=== PATIENT | male | born 1935 | race Caucasian/White ===

== ENCOUNTER 2017-11-07 21:50 | Observation (INO) | payer MEDICARE, BC ==
[2017-11-07 22:41] LABS: CHLORIDE,CL 104 mEq/L (98-106); SODIUM,NA 139 mEq/L (136-145)
--- NOTE | 2017-11-07 22:41 | EDM.PDOC ---
ED HPI GENERAL MEDICAL PROBLEM - General Chief Complaint: General Stated Complaint: confused Time Seen by Provider: 11/07/17 22:22 Source of Information: Reports: Patient History Limitations: Reports: Altered Mental Status (patient vocalizes and answers questions but not always appropriate for question or situation) - History of Present Illness INITIAL COMMENTS - FREE TEXT/NARRATIVE: Patient presents per EMS with concerns of increased confusion from his norm, hypertensive urgency. states he awoke from a short nap after supper in his recliner and was way more confused than normal. Had trouble redirecting him. Helped him up to bad and when she turned her back to call family, he fell to the floor. Patient does have issues with dementia and she relates that his confusion in not a new thing, was just different. He has not had a fever. No real cough. No urinary changes. No N/V/D. states she called her daughter -in-law who is a nurse to come over and his blood pressure was very high. With his history of small strokes, she was concerned about the blood pressure and change in mental status. He has been eating and drinking without difficulty, although she did note his lips and mouth seemed to be more dry than usual. Onset: Today, Sudden Duration: Minutes: Location: Reports: Generalized Associated Symptoms: Reports: Confusion, Weakness. Denies: Chest Pain, Cough, Fever/Chills, Loss of Appetite, Nausea/Vomiting, Shortness of Breath, Syncope - Related Data Allergies Allergy/AdvReac Type Severity Reaction Status Date / Time prochlorperazine maleate Allergy Cannot Verified 03/18/16 13:52 [From Compazine] Remember prochlorperazine edisylate AdvReac Cannot Verified 03/18/16 13:52 [From Compazine] Remember Home Meds: Home Meds Levothyroxine Sodium [Levoxyl] 150 mcg PO DAILY 03/18/16 [History] Metoprolol Tartrate 50 mg PO BID 03/18/16 [History] amLODIPine [Norvasc] 5 mg PO DAILY 03/18/16 [History] Cholecalciferol (Vitamin D3) [Vitamin D3] 2,000 units PO DAILY 11/07/17 [History ] Magnesium 250 mg PO DAILY 11/07/17 [History] Warfarin [Coumadin] 5 mg PO SUMOWETHSA 11/07/17 [History] Warfarin [Coumadin] 7.5 mg PO TUFR 11/07/17 [History] Past Medical History Cardiovascular History: Reports: CAD, High Cholesterol, Hypertension Respiratory History: Reports: PE. Denies: Sleep Apnea Gastrointestinal History: Reports: Irritable Bowel Syndrome, Other (See Below) Other Gastrointestinal History: crohns disease Genitourinary History: Reports: BPH Musculoskeletal History: Reports: Arthritis Neurological History: Reports: CVA Psychiatric History: Reports: Dementia Oncologic (Cancer) History: Reports: Hodgkin's Lymphoma Social & Family History - Tobacco Use Smoking Status *Q: Never Smoker - Caffeine Use Caffeine Use: Reports: Coffee ED ROS GENERAL - Review of Systems Review Of Systems: See Below Constitutional: Reports: Weakness. Denies: Fever, Chills, Malaise, Decreased Appetite HEENT: Denies: Ear Pain, Sinus Problem, Throat Pain, Vertigo Respiratory: Denies: Shortness of Breath, Cough Cardiovascular: Denies: Chest Pain, Edema, Lightheadedness Endocrine: Reports: Fatigue GI/Abdominal: Denies: Abdominal Pain, Black Stool, Bloody Stool, Nausea, Vomiting : Denies: Flank Pain, Frequency Musculoskeletal: Reports: No Symptoms Skin: Reports: No Symptoms Neurological: Reports: Confusion, Weakness ED EXAM, GENERAL - Physical Exam Exam: See Below Exam Limited By: No Limitations General Appearance: Alert, WD/WN, No Apparent Distress Eye Exam: Bilateral Eye: EOMI Ears: Normal External Exam, Normal TMs Nose: Normal Inspection, Normal Mucosa, No Blood Throat/Mouth: Normal Inspection, Normal Oropharynx Head: Normocephalic Neck: Normal Inspection, Supple, Non-Tender Respiratory/Chest: No Respiratory Distress, Lungs Clear, Normal Breath Sounds Cardiovascular: Regular Rate, Rhythm, No Edema GI/Abdominal: Normal Bowel Sounds, Soft, Non-Tender Extremities: Normal Inspection, Normal Capillary Refill Neurological: Alert, Oriented (person. Knows he is at the "[facility]" but cannot identify name) Skin Exam: Warm, Dry Course - Vital Signs Last Recorded V/S: Last Vital Signs Temp 97.5 F 11/07/17 21:59 Pulse 70 11/07/17 22:50 Resp 18 11/07/17 21:59 BP 188/88 H 11/07/17 22:50 Pulse Ox 95 11/07/17 22:50 - Orders/Labs/Meds Orders: Active Orders 24 hr Category Date Time Status EKG Documentation Completion [RC] STAT Care 11/07/17 22:10 Active Labs: Laboratory Tests 11/07/17 11/07/17 11/07/17 Range/Units 20:20 20:20 20:20 WBC 7.7 (5.0-10.0) 10^3/uL RBC 4.33 L (4.50-6.00) 10^6/uL Hgb 14.2 (14.0-18.0) g/dL Hct 41.7 (40.0-54.0) % MCV 96.3 H (82.0-94.0) fL MCH 32.8 H (27.0-32.0) pg MCHC 34.1 (33.0-38.0) g/dL RDW Coeff of Misty 14.5 (11.0-15.0) % Plt Count 202 (150-400) 10^3/uL Neut % (Auto) 43.4 (35-85) % Lymph % (Auto) 38.0 (10-55) % [place] % (Auto) 15.2 (0-16) % Eos % (Auto) 3.0 (0-5) % Baso % (Auto) 0.4 (0-3) % Neut # (Auto) 3.33 (1.80-7.00) 10^3/uL Lymph # (Auto) 2.92 (1.00-4.80) 10^3/uL [place] # (Auto) 1.17 H (0.00-0.80) 10^3/uL Eos # (Auto) 0.23 (0.00-0.45) 10^3/uL Baso # (Auto) 0.03 10^3/uL PT 15.4 H (9.7-12.3) SEC INR 1.41 H (0.92-1.18) Sodium 139 (136-145) mEq/L Potassium 4.0 (3.5-5.0) mEq/L Chloride 104 (98-106) mEq/L Carbon Dioxide 26 (21-32) mmol/L BUN 17 (7-18) mg/dL Creatinine 1.2 (0.7-1.3) mg/dL Est Cr Clr Drug Dosing 45.90 mL/min Estimated GFR (MDRD) 58 L (>=60) mL/min Glucose 131 H D (75-99) mg/dL Calcium 9.0 (8.4-10.1) mg/dL Total Bilirubin 0.4 (0.0-1.0) mg/dL AST 26 (15-37) U/L ALT 38 (12-78) U/L Alkaline Phosphatase 37 L (46-116) U/L Lactate Dehydrogenase 234 H (100-190) U/L Creatine Kinase 170 (35-232) U/L Troponin I < 0.017 (0.00-0.06) ng/mL C-Reactive Protein 0.6 (0.2-0.8) mg/dL Total Protein 7.1 (6.4-8.2) g/dL Albumin 3.2 L (3.4-5.0) g/dL Urine Color (YELLOW) Urine Appearance (CLEAR) Urine pH (4.5-8.0) Ur Specific [place] (1.003-1.020) Urine Protein (NEGATIVE) mg/dL Urine Glucose (UA) (NEGATIVE) mg/dL Urine Ketones (NEGATIVE) mg/dL Urine Occult Blood (NEGATIVE) Urine Nitrite (NEGATIVE) Urine Bilirubin (NEGATIVE) Urine Urobilinogen (0.2-1.0) EU/dL Ur Leukocyte Esterase (NEGATIVE) Urine RBC (0-5) /HPF Urine WBC (0-5) /HPF Ur Squamous Epith Cells (NOT SEEN) /HPF Calcium Oxalate Crystal (NOT SEEN) /HPF Urine Mucus (NOT SEEN) /HPF 11/07/17 Range/Units 22:10 WBC (5.0-10.0) 10^3/uL RBC (4.50-6.00) 10^6/uL Hgb (14.0-18.0) g/dL Hct (40.0-54.0) % MCV (82.0-94.0) fL MCH (27.0-32.0) pg MCHC (33.0-38.0) g/dL RDW Coeff of [place]y (11.0-15.0) % Plt Count (150-400) 10^3/uL Neut % (Auto) (35-85) % Lymph % (Auto) (10-55) % [place] % (Auto) (0-16) % Eos % (Auto) (0-5) % Baso % (Auto) (0-3) % Neut # (Auto) (1.80-7.00) 10^3/uL Lymph # (Auto) (1.00-4.80) 10^3/uL [place] # (Auto) (0.00-0.80) 10^3/uL Eos # (Auto) (0.00-0.45) 10^3/uL Baso # (Auto) 10^3/uL PT (9.7-12.3) SEC INR (0.92-1.18) Sodium (136-145) mEq/L Potassium (3.5-5.0) mEq/L Chloride (98-106) mEq/L Carbon Dioxide (21-32) mmol/L BUN (7-18) mg/dL Creatinine (0.7-1.3) mg/dL Est Cr Clr Drug Dosing mL/min Estimated GFR (MDRD) (>=60) mL/min Glucose (75-99) mg/dL Calcium (8.4-10.1) mg/dL Total Bilirubin (0.0-1.0) mg/dL AST (15-37) U/L ALT (12-78) U/L Alkaline Phosphatase (46-116) U/L Lactate Dehydrogenase (100-190) U/L Creatine Kinase (35-232) U/L Troponin I (0.00-0.06) ng/mL C-Reactive Protein (0.2-0.8) mg/dL Total Protein (6.4-8.2) g/dL Albumin (3.4-5.0) g/dL Urine Color Yellow (YELLOW) Urine Appearance Clear (CLEAR) Urine pH 6.0 (4.5-8.0) Ur Specific [place] >= 1.030 H (1.003-1.020) Urine Protein 100 H (NEGATIVE) mg/dL Urine Glucose (UA) Negative (NEGATIVE) mg/dL Urine Ketones Negative (NEGATIVE) mg/dL Urine Occult Blood Trace-intact H (NEGATIVE) Urine Nitrite Negative (NEGATIVE) Urine Bilirubin Negative (NEGATIVE) Urine Urobilinogen 0.2 (0.2-1.0) EU/dL Ur Leukocyte Esterase Negative (NEGATIVE) Urine RBC 0-5 (0-5) /HPF Urine WBC Not seen (0-5) /HPF Ur Squamous Epith Cells Rare (NOT SEEN) /HPF Calcium Oxalate Crystal Rare (NOT SEEN) /HPF Urine Mucus Few H (NOT SEEN) /HPF - Re-Assessments/Exams Free Text/Narrative Re-Assessment/Exam: 11/07/17 23:03 Blood pressure improving, still high. Neurological exam normal. Labs reviewed , specific gravity high but no other real lab concerns. Will start IV fluids, admit for observation and follow neurological status and blood pressure. Family aware and agree with plan Departure - Departure Time of Disposition: 23:04 Disposition: Refer to Observation Condition: Fair Clinical Impression: Confusion, Dehydration, Hypertensive urgency - Discharge Information - Problem List & Annotations (1) Confusion SNOMED Code(s): 699459097 Code(s): R41.0 - DISORIENTATION, UNSPECIFIED Status: Acute Priority: High Current Visit: Yes (2) Dehydration SNOMED Code(s): 13886423 Code(s): E86.0 - DEHYDRATION Status: Acute Priority: High Current Visit : Yes (3) Hypertensive urgency SNOMED Code(s): 798992356 Code(s): I16.0 - HYPERTENSIVE URGENCY Status: Acute Priority: High Current Visit: Yes - Problem List Review Problem List Initiated/Reviewed/Updated: Yes - My Orders Last 24 Hours: My Active Orders 11/07/17 22:10 EKG Documentation Completion [RC] STAT - Assessment/Plan Admission H&P: Please use this note as an admission H&P Last 24 Hours: My Active Orders 11/07/17 22:10 EKG Documentation Completion [RC] STAT Assessment:: Increased confusion Dehydration Hypertensive urgency Plan: Admit to observation to monitor neurological status and blood pressure. Will rehydrate overnight.
[2017-11-07] MEDS ORDERED: Ondansetron 4 MG Tab.DIS PO PRN (23:24)
[2017-11-07] MEDS ORDERED: Sodium Chloride 0.9% 10 ML Syringe FLUSH PRN (23:24)
[2017-11-07] MEDS ORDERED: Acetaminophen 325 MG Tab PO PRN (23:24)
[2017-11-07] MEDS ORDERED: Sodium Chloride 0.9% 1,000 ML IV SCH (23:30)
[2017-11-08 07:49] LABS: CHLORIDE,CL 104 mEq/L (98-106); SODIUM,NA 139 mEq/L (136-145)
[2017-11-08] MEDS ORDERED: Metoprolol Tartrate 50 MG Tab PO SCH (08:00)
[2017-11-08] MEDS ORDERED: Cholecalciferol (Vitamin D3) 1,000 Unit Tab PO SCH (08:00)
[2017-11-08] MEDS ORDERED: Levothyroxine 150 MCG Tab PO SCH (08:00)
[2017-11-08] MEDS ORDERED: amLODIPine 10 MG Tab PO SCH (08:00)
[2017-11-08 08:08] VITALS: BP 184/54
[2017-11-08] MEDS ORDERED: Warfarin 5 MG Tab PO SCH (12:00)
--- NOTE | 2017-11-08 22:28 | PCM.DCSUM1 ---
Discharge Summary - Hospital Course Free Text/Narrative:: Patient presented to ER per EMS due to concerns of increased weakness, confusion and hypertension. relates his confusion after awakening from a nap seemed more bizarre than his usual. Has had issues with dementia now for quite some time and has been having increased behaviors. Tonight she was worried as he has had 3 small strokes and his blood pressure was very high at home. Initial blood pressure per EMS 220/110. On admission, systolic remained high in 190s but diastolic down to 74. Patient himself denies any symptoms. Lab results all essentially negative in ER. EKG negative. - Discharge Data Discharge Date: 11/08/17 Discharge Disposition: DC/Tfer to Longterm [place] [id number] Condition: Fair - Discharge Diagnosis/Problem(s) (1) Confusion SNOMED Code(s): 389725148 ICD Code: R41.0 - DISORIENTATION, UNSPECIFIED Status: Acute Priority: High (2) Dehydration SNOMED Code(s): 11259082 ICD Code: E86.0 - DEHYDRATION Status: Acute Priority: High (3) Hypertensive urgency SNOMED Code(s): 180391169 ICD Code: I16.0 - HYPERTENSIVE URGENCY Status: Acute Priority: High - Patient Summary/Data Complications: none Hospital Course: Patient remains pleasantly confused, avoids answering a question with another story or question. Denies chest pain or shortness of breath, no abdominal pain. No headache. Blood pressure has somewhat stabilized, systolic remains high with normal diastolic pressure. Exam stable, no new neurological changes noted. Family in this am, had discussion last evening and are wanting to admit patient to the coral wing at the [facility] due to safety and advancing dementia. concerned as she can't properly care for him any longer. Did contact the shelter and able to transfer there today as feels the transition would be easier from here than from home. Transfer orders completed. - Patient Instructions Diet: Usual Diet as Tolerated Activity: As Tolerated - Discharge Plan Prescriptions/Med Rec: amLODIPine [Norvasc] 10 mg PO BEDTIME #30 tablet Home Medications: Home Meds Levothyroxine Sodium [Levoxyl] 150 mcg PO DAILY 03/18/16 [History] Metoprolol Tartrate 50 mg PO BID 03/18/16 [History] Cholecalciferol (Vitamin D3) [Vitamin D3] 2,000 units PO DAILY 11/07/17 [History ] Magnesium 250 mg PO DAILY 11/07/17 [History] Warfarin [Coumadin] 5 mg PO SUMOWETHSA 11/07/17 [History] Warfarin [Coumadin] 7.5 mg PO TUFR 11/07/17 [History] amLODIPine [Norvasc] 10 mg PO BEDTIME #30 tablet 11/08/17 [Rx] Forms: ED Department Discharge Referrals: Jasper Muro MD [Primary Care Provider] - (Follow up in [address] Muro ) - Discharge Summary/Plan Comment DC Time >30 min.: Yes Discharge Summary/Plan Comment: Time spent with patient and 20 minutes. Time with transfer orders 10 minutes time for documentation 10 minutes. Increase Amlodopine to 10 mg every HS, otherwise same routine meds. - General Info Date of Service: 11/08/17 Admission Dx/Problem (Free Text: confusion Dehydration Hypertensive urgency Functional Status: Reports: Pain Controlled, Tolerating Diet, Ambulating - Review of Systems General: Denies: Fever, Weakness, Fatigue HEENT: Denies: Contact Lenses, Ear Pain, Sinus Congestion, Sore Throat Pulmonary: Denies: Shortness of Breath, Cough, Sputum Cardiovascular: Denies: Chest Pain, Edema, Lightheadedness Gastrointestinal: Denies: Abdominal Pain, Nausea, Vomiting Genitourinary: Denies: Dysuria, Frequency Musculoskeletal: Reports: No Symptoms Skin: Reports: No Symptoms Neurological: Reports: Confusion - Patient Data Vitals - Most Recent: Last Vital Signs Temp 97.4 F 11/08/17 08:00 Pulse 77 11/08/17 08:06 Resp 20 11/08/17 08:00 BP 184/54 H 11/08/17 08:06 Pulse Ox 94 L 11/08/17 08:00 Weight - Most Recent: 198 lb 3.2 oz Lab Results - Last 24 hrs: Laboratory Results - last 24 hr 11/08/17 Range/Units 07:31 Sodium 139 (136-145) mEq/L Potassium 4.0 (3.5-5.0) mEq/L Chloride 104 (98-106) mEq/L Carbon Dioxide 26 (21-32) mmol/L BUN 12 (7-18) mg/dL Creatinine 1.0 (0.7-1.3) mg/dL Est Cr Clr Drug Dosing 55.08 mL/min Estimated GFR (MDRD) > 60 (>=60) mL/min Glucose 103 H (75-99) mg/dL Calcium 8.5 (8.4-10.1) mg/dL Med Orders - Current: Current Medications Discontinued Medications Acetaminophen (Tylenol) 650 mg PO Q4H PRN PRN Reason: Pain (Mild 1-3)/fever Amlodipine Besylate (Norvasc) 5 mg PO DAILY [facility] Last Admin: 11/08/17 08:06 Dose: 5 mg Cholecalciferol (Vitamin D3) 2,000 units PO DAILY [facility] Last Admin: 11/08/17 08:04 Dose: 2,000 units Sodium Chloride (Normal Saline) 1,000 mls @ 75 mls/hr IV ASDIRECTED [facility] Last Admin: 11/07/17 23:46 Dose: 75 mls/hr Levothyroxine Sodium (Levothyroxine) 150 mcg PO DAILY [facility] Last Admin: 11/08/17 08:04 Dose: 150 mcg Magnesium Oxide (Magnesium Oxide) 250 mg PO DAILY [facility] Last Admin: 11/08/17 08:04 Dose: 250 mg Metoprolol Tartrate (Lopressor) 50 mg PO BIDMEALS [facility] Last Admin: 11/08/17 08:06 Dose: 50 mg Ondansetron HCl (Zofran Odt) 4 mg PO Q4H PRN PRN Reason: nausea, able to take PO Sodium Chloride (Saline Flush) 10 ml FLUSH ASDIRECTED PRN PRN Reason: Keep Vein Open Warfarin Sodium (Coumadin) 7.5 mg PO TuFr@1200 JONES Warfarin Sodium (Coumadin) 5 mg PO SuMoWeThSa@1200 [facility] Last Admin: 11/08/17 12:20 Dose: 5 mg - Exam General: Reports: Alert, Oriented (person only) HEENT: Reports: Mucous Membr. Moist/[place] Neck: Reports: Supple Lungs: Reports: Clear to Auscultation, Normal Respiratory Effort Cardiovascular: Reports: Regular Rate, Regular Rhythm GI/Abdominal Exam: Normal Bowel Sounds, Soft, Non-Tender Extremities: Normal Inspection, No Pedal Edema Skin: Reports: Warm, Dry Neurological: Reports: No New Focal Deficit *Q Meaningful Use (DIS) - VTE *Q VTE Criteria *Q: - Stroke *Q Stroke Criteria *Q: - AMI *Q AMI Criteria *Q:
[2017-11-09] MEDS ORDERED: Warfarin 2.5 MG Tab PO SCH (12:00)
== END 2017-11-08 14:30 ==
LOC: CC.ED 21:50 → UNDOADMOB 23:09 → CC.MS 23:09
PROVIDERS: ADMIT Physician Assistant Medical; ATTEND Family Medicine
DX: R41.0 Disorientation, unspecified (principal); E86.0 Dehydration; I16.0 Hypertensive urgency; I25.10 Atherosclerotic heart disease of native coronary artery without angina pectoris; I10 Essential (primary) hypertension; E78.00 Pure hypercholesterolemia, unspecified; N40.0 Benign prostatic hyperplasia without lower urinary tract symptoms; Z88.8 Allergy status to other drugs, medicaments and biological substances; Z79.01 Long term (current) use of anticoagulants; Z79.899 Other long term (current) drug therapy
CPT/HCPCS: 36415; 80048; 80053; 81001; 82550; 83615; 84484; 85025; 85610; 86140; 93005; 99285; A9270; J7030; 93010; 99217; 99220; G0378

== ENCOUNTER 2017-11-11 16:15 | Emergency (ER) | payer MEDICARE, BC ==
[2017-11-11 16:27] VITALS: BP 134/67
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
[2017-11-11] MEDS ORDERED: LORazepam 0.5 MG Tab PO ONE (19:48)
[2017-11-11] MEDS ORDERED: Sertraline 25 MG Tab PO SCH (20:00)
== END 2017-11-11 20:50 | disposition home or self-care (01) ==
LOC: CC.ED 16:15
DX: F03.90 Unspecified dementia, unspecified severity, without behavioral disturbance, psychotic disturbance, mood disturbance, and anxiety (principal); I10 Essential (primary) hypertension; E78.00 Pure hypercholesterolemia, unspecified; Z79.01 Long term (current) use of anticoagulants; Z79.899 Other long term (current) drug therapy; Z88.8 Allergy status to other drugs, medicaments and biological substances
CPT/HCPCS: 36415; 80048; 80305; 81001; 85025; 99284; A9270